=== PATIENT | female | born 1970 | race Caucasian/White ===

== ENCOUNTER 2018-03-15 13:45 | Emergency (ER) | payer MEDICAID ==
[~2018-03-15] VITALS: Ht 157.5 cm; Wt 84.4 kg
[2018-03-15 13:58] VITALS: Ht 157.5 cm; Wt 84.4 kg
[2018-03-15 16:35] VITALS: BP 103/70
== END 2018-03-15 16:35 | disposition home or self-care (01) ==
LOC: ED 13:45
DX: H60.93 Unspecified otitis externa, bilateral (principal); R11.2 Nausea with vomiting, unspecified; E11.9 Type 2 diabetes mellitus without complications
CPT/HCPCS: J1885; Q0162

== ENCOUNTER 2019-06-11 18:49 | Emergency (ER) | payer OTHER ==
[~2019-06-11] VITALS: Ht 157.5 cm; Wt 83.9 kg
[2019-06-11 19:53] VITALS: Ht 157.5 cm; Wt 83.9 kg
[2019-06-11 23:24] VITALS: BP 136/85
== END 2019-06-11 23:24 | disposition home or self-care (01) ==
LOC: ED 18:49
DX: E11.40 Type 2 diabetes mellitus with diabetic neuropathy, unspecified (principal); M79.604 Pain in right leg; R10.9 Unspecified abdominal pain; R30.0 Dysuria
CPT/HCPCS: 82962; J1885